=== PATIENT | male | born 1960 | race Caucasian/White ===

== ENCOUNTER 2020-10-13 13:27 | Emergency (ER) | payer OTHER, SELFPAY ==
[~2020-10-13] VITALS: Ht 170.2 cm; Wt 79.8 kg
[2020-10-13 14:09] VITALS: BP 99/58; Ht 170.2 cm; Wt 79.8 kg
== END 2020-10-13 15:05 | disposition home or self-care (01) ==
LOC: ED 13:27
DX: U07.1 COVID-19 (principal)
CPT/HCPCS: U0003